=== PATIENT | female | born 1965 | race Caucasian/White ===

== ENCOUNTER 2019-11-06 17:26 | Inpatient (IN) | payer MEDICAID ==
[~2019-11-06] VITALS: Ht 165.1 cm; Wt 104.5 kg
[2019-11-06] MEDS ORDERED: INSULIN REGULAR, HUMAN 100 UNITS/ML SQ ONE ×2 (18:00→20:00)
[2019-11-06 18:16] LABS: BASOPHILS % (AUTO) 0.6 % (0.0-2.0); EOSINOPHILS % (AUTO) 0.3 % (1.0-6.0); HEMATOCRIT 45.3 % (36-46); HEMOGLOBIN 14.4 g/dL (12.0-16.0); LYMPHOCYTES % (AUTO) 12.8 % (22.0-44.0); MEAN CORPUSCULAR HEMOGLOBIN 30.4 pg (26.0-34.0); MEAN CORPUSCULAR HGB CONC 31.9 G/dL (31.0-37.0); MEAN CORPUSCULAR VOLUME 96 fL (80-100); MONOCYTES # (AUTO) 0.3 K/uL (0.1-1.0); MONOCYTES % (AUTO) 4.1 % (2.0-9.0); NEUTROPHILS # (AUTO) 6.7 K/uL (1.8-7.7); NEUTROPHILS % (AUTO) 82.2 % (40.0-70.0); PLATELET COUNT (AUTO) 250 K/uL (150-450); RED BLOOD CELL COUNT(AUTO) 4.74 MIL/uL (4.00-5.20); RED CELL DISTRIBUTION WIDTH 15.3 % (11.5-14.5)
[2019-11-06 18:34] LABS: ALBUMIN 3.7 g/dL (3.4-5.0); BILIRUBIN,TOTAL 0.4 mg/dL (0.1-1.0); CALCIUM, TOTAL 9.6 mg/dL (8.8-10.5); CREATININE 1.13 mg/dL (0.60-1.30); POTASSIUM 5.1 mmol/L (3.5-5.1); TOTAL PROTEIN, SERUM 8.7 g/dL (6.4-8.2)
[2019-11-06] MEDS ORDERED: ZOLPIDEM TARTRATE 10 MG TABLET PO PRN (18:45)
[2019-11-06] MEDS ORDERED: HALOPERIDOL 5 MG TABLET PO PRN (18:45)
[2019-11-06] MEDS ORDERED: LORazepam 2 MG TABLET PO PRN (18:45)
[2019-11-06 19:11] LABS: AMPHET/METH SCREEN,URINE NEGATIVE (NEGATIVE); BARBITURATE SCREEN, URINE NEGATIVE (NEGATIVE); BENZODIAZEPINES SCREEN,URINE NEGATIVE (NEGATIVE); CANNABINOID SCREEN,URINE NEGATIVE (NEGATIVE); COCAINE SCREEN,URINE NEGATIVE (NEGATIVE); METHADONE SCREEN, URINE NEGATIVE (NEGATIVE); OPIATE SCREEN,URINE NEGATIVE (NEGATIVE); PHENCYCLIDINE SCREEN,URINE NEGATIVE (NEGATIVE)
[2019-11-06 19:23] LABS: GLUCOSE,POINT OF CARE 590 MG/DL (70-110)
[2019-11-06 20:41] LABS: APPEARANCE,URINE CLEAR (CLEAR); BILIRUBIN,URINE NEGATIVE (NEGATIVE); GLUCOSE, URINE (UA) >=1000 mg/dL (NEGATIVE); KETONES,URINE TRACE mg/dL (NEGATIVE); LEUKOCYTE ESTERASE ,URINE NEGATIVE (NEGATIVE); NITRATE,URINE NEGATIVE (NEGATIVE); OCCULT BLOOD,URINE NEGATIVE (NEGATIVE); PH,URINE 5.5 (5.0-8.0); PROTEIN,URINE NEGATIVE (NEGATIVE); UROBILINOGEN,URINE 0.2 mg/dL (<=1.0)
[2019-11-06 20:49] LABS: BACTERIA,URINE None Seen /HPF (None Seen); RBC,URINE None Seen /HPF (0-2); SQUAMOUS EPITHELIAL CELL,UR Rare /LPF (None Seen); WBC,URINE None Seen /HPF (0-5)
[2019-11-06 22:26] LABS: GLUCOSE,POINT OF CARE 546 MG/DL (70-110)
[2019-11-06 22:26] LABS: GLUCOSE,POINT OF CARE 440 MG/DL (70-110)
[2019-11-06 23:48] LABS: GLUCOSE,POINT OF CARE 354 MG/DL (70-110)
[2019-11-07 02:30] VITALS: BP 119/70
[2019-11-07] MEDS: ACETAMINOPHEN 325 MG TABLET PO PRN ×2 (02:31→10:37)
[2019-11-07 02:47] LABS: GLUCOMETER DEV NAME(LOC) BV3N.; GLUCOSE,POINT OF CARE 322 MG/DL (70-110)
[2019-11-07] MEDS ORDERED: INSULIN LISPRO 100 UNITS/ML SQ ONE ×2 (07:00→10:15)
[2019-11-07] MEDS ORDERED: INSULIN LISPRO 100 UNITS/ML SQ PRN (07:00)
[2019-11-07] MEDS ORDERED: GLUCAGON,HUMAN RECOMBINANT 1 MG VIAL IM PRN ×2 (07:00→10:30)
[2019-11-07 08:07] LABS: GLUCOMETER DEV NAME(LOC) BV3N.; GLUCOSE,POINT OF CARE 315 MG/DL (70-110)
[2019-11-07 08:26] VITALS: BP 138/86
[2019-11-07 08:57] LABS: FREE T4 (FREE THYROXINE) 1.05 ng/dL (0.76-1.46); THYROID STIMULATING HORMONE 3.79 uIU/mL (0.36-3.74)
[2019-11-07] MEDS: INSULIN GLARGINE,HUM.REC.ANLOG 100 UNITS/ML SQ SCH (10:35)
[2019-11-07] MEDS: INSULIN LISPRO 100 UNITS/ML SQ PRN ×3 (11:39→20:29)
[2019-11-07 11:50] LABS: GLUCOMETER DEV NAME(LOC) BV3N.; GLUCOSE,POINT OF CARE 330 MG/DL (70-110)
[2019-11-07] MEDS: DULoxetine HCL 30 MG CAPSULE PO SCH (11:57)
[2019-11-07] MEDS ORDERED: CloNIDine HCL 0.1 MG TABLET PO PRN (14:15)
[2019-11-07] MEDS ORDERED: IBUPROFEN 400 MG TABLET PO PRN (14:15)
[2019-11-07] MEDS ORDERED: NICOTINE 14 MG/24 HOUR PATCH TD PRN (14:15)
[2019-11-07] MEDS ORDERED: ONDANSETRON HCL 4 MG TABLET PO PRN (14:15)
[2019-11-07] MEDS ORDERED: GuaiFENesin/D-METHORPHAN [SUGAR-FREE] 200-20MG/10 ML SYRUP UDCUP PO PRN (14:15)
[2019-11-07] MEDS ORDERED: ALBUTEROL SULFATE HFA 90 MCG/PUFF 8 GM INHALER IH PRN (14:15)
[2019-11-07] MEDS ORDERED: LOPERAMIDE HCL 2 MG CAPSULE PO PRN (14:15)
[2019-11-07] MEDS ORDERED: MAG HYDROX/AL HYDROX/SIMETH ES 30 ML SUSPENSION UDCUP PO PRN (14:15)
[2019-11-07] MEDS ORDERED: PETROLATUM,WHITE 28 GM JELLY TP PRN (14:15)
[2019-11-07] MEDS ORDERED: DOCUSATE SODIUM 100 MG CAPSULE PO PRN (14:15)
[2019-11-07] MEDS ORDERED: MAGNESIUM HYDROXIDE SUSPENSION 30 ML UDCUP PO PRN (14:15)
[2019-11-07 16:05] LABS: GLUCOMETER DEV NAME(LOC) BV3N.; GLUCOSE,POINT OF CARE 321 MG/DL (70-110)
[2019-11-07 16:11] VITALS: BP 138/90
[2019-11-07] MEDS: MetFORMIN HCL 500 MG TABLET PO SCH (16:33)
[2019-11-07 16:41] VITALS: BP 138/90
[2019-11-07] MEDS: MIRTAZAPINE 30 MG TABLET PO SCH (20:21)
[2019-11-07 20:29] LABS: GLUCOMETER DEV NAME(LOC) BV3N.; GLUCOSE,POINT OF CARE 326 MG/DL (70-110)
[2019-11-07 20:46] VITALS: BP 128/86
[2019-11-08 06:04] VITALS: BP 135/86
[2019-11-08 06:05] VITALS: BP 135/86
[2019-11-08] MEDS: INSULIN GLARGINE,HUM.REC.ANLOG 100 UNITS/ML SQ SCH (06:42)
[2019-11-08] MEDS: INSULIN LISPRO 100 UNITS/ML SQ PRN ×4 (06:42→20:23)
[2019-11-08] MEDS: MetFORMIN HCL 500 MG TABLET PO SCH ×2 (06:46→16:17)
[2019-11-08 06:48] LABS: GLUCOMETER DEV NAME(LOC) BV3N.; GLUCOSE,POINT OF CARE 300 MG/DL (70-110)
[2019-11-08] MEDS: ACETAMINOPHEN 325 MG TABLET PO PRN ×2 (06:58→20:21)
[2019-11-08 08:13] VITALS: BP 117/63
[2019-11-08] MEDS: DULoxetine HCL 30 MG CAPSULE PO SCH (08:13)
[2019-11-08 11:00] LABS: GLUCOMETER DEV NAME(LOC) BV3N.; GLUCOSE,POINT OF CARE 356 MG/DL (70-110)
[2019-11-08] MEDS ORDERED: DiphenhydrAMINE HCL 50 MG/ML VIAL IM ONE (11:00)
[2019-11-08] MEDS ORDERED: HALOPERIDOL LACTATE 5 MG/ML VIAL IM ONE (11:00)
[2019-11-08] MEDS ORDERED: LORazepam 2 MG/ML VIAL IM ONE (11:00)
[2019-11-08 16:10] VITALS: BP 140/70
[2019-11-08 16:15] VITALS: BP 140/70
[2019-11-08 16:28] LABS: GLUCOMETER DEV NAME(LOC) BV3N.; GLUCOSE,POINT OF CARE 309 MG/DL (70-110)
[2019-11-08] MEDS: MIRTAZAPINE 30 MG TABLET PO SCH (20:13)
[2019-11-08 20:25] LABS: GLUCOMETER DEV NAME(LOC) BV3N.; GLUCOSE,POINT OF CARE 356 MG/DL (70-110)
[2019-11-09 04:57] VITALS: BP 126/72
[2019-11-09 05:01] VITALS: BP 126/72
[2019-11-09] MEDS: INSULIN GLARGINE,HUM.REC.ANLOG 100 UNITS/ML SQ SCH (06:46)
[2019-11-09] MEDS: INSULIN LISPRO 100 UNITS/ML SQ PRN ×2 (06:47→11:56)
[2019-11-09] MEDS: MetFORMIN HCL 500 MG TABLET PO SCH (06:50)
[2019-11-09 06:59] LABS: GLUCOMETER DEV NAME(LOC) BV3N.; GLUCOSE,POINT OF CARE 252 MG/DL (70-110)
[2019-11-09 08:13] VITALS: BP 150/69
[2019-11-09] MEDS: DULoxetine HCL 30 MG CAPSULE PO SCH (08:46)
[2019-11-09 11:14] LABS: GLUCOMETER DEV NAME(LOC) BV3N.; GLUCOSE,POINT OF CARE 271 MG/DL (70-110)
[2019-11-09] MEDS ORDERED: DULO30CA2 PO (12:26)
[2019-11-09] MEDS ORDERED: METF-960 PO (12:26)
[2019-11-09] MEDS ORDERED: INSLAN SQ (12:26)
[2019-11-09] MEDS ORDERED: MIRT30 PO (12:26)
[2019-11-09 13:14] VITALS: BP 127/60
== END 2019-11-09 14:30 | disposition home or self-care (01) | DRG 751 ==
LOC: EMS 17:26 → B3A 11-07 00:07
DX: F33.2 Major depressive disorder, recurrent severe without psychotic features (principal); E11.65 Type 2 diabetes mellitus with hyperglycemia; K70.30 Alcoholic cirrhosis of liver without ascites; R45.851 Suicidal ideations; K73.9 Chronic hepatitis, unspecified; E03.9 Hypothyroidism, unspecified; E66.9 Obesity, unspecified; M19.90 Unspecified osteoarthritis, unspecified site; M06.9 Rheumatoid arthritis, unspecified; E66.01 Morbid (severe) obesity due to excess calories; E78.5 Hyperlipidemia, unspecified; F10.129 Alcohol abuse with intoxication, unspecified; G89.29 Other chronic pain; S61.419A Laceration without foreign body of unspecified hand, initial encounter; X58.XXXA Exposure to other specified factors, initial encounter; Y93.89 Activity, other specified; Y92.89 Other specified places as the place of occurrence of the external cause; Y99.8 Other external cause status; Z91.5 Personal history of self-harm; Z68.38 Body mass index [BMI] 38.0-38.9, adult; Z79.84 Long term (current) use of oral hypoglycemic drugs
CPT/HCPCS: 84439; 84443; G0480; J1815